=== PATIENT | female | born 1955 | race Caucasian/White ===

== ENCOUNTER → 2021-03-30 11:43 | Outpatient (CLI) | payer BC, SELFPAY ==
--- NOTE | 2021-03-30 11:46 | DI.RAD.S_ITS ---
PROCEDURE: XR ELBOW LT MIN 3V INDICATIONS: fall, elbow pain/ TECHNIQUE: 3 views of the elbow were acquired. COMPARISON: None. FINDINGS: Bones: There is a very subtle radial head fracture. No suspicious bony lesions. Soft tissues: There is an elbow joint effusion. No suspicious soft tissue calcifications. IMPRESSION: Very subtle radial head fracture with associated elbow joint effusion. Dictated by: Jamarcus Amin M.D. on 03/30/2021 at 12:37 Approved by: Jamarcus Amin M.D. on 03/30/2021 at 12:39
== END ==
PROVIDERS: Referring Provider Nurse Practitioner Family; Visit Provider Nurse Practitioner Family
DX: S52.122A Displaced fracture of head of left radius, initial encounter for closed fracture (principal); M25.422 Effusion, left elbow; W19.XXXA Unspecified fall, initial encounter
CPT/HCPCS: 73080

== ENCOUNTER 2021-06-08 13:58 | Emergency (ER) | payer BC, SELFPAY ==
[2021-06-08] VITALS (15 sets, daily range): BP systolic 138–188; BP diastolic 76–92; PULSE 66–86; RESP 10–23; TEMP 37.1; O2SAT 97–100
--- NOTE | 2021-06-08 14:06 | DI.RAD.S_ITS ---
PROCEDURE: XR CHEST 1V INDICATIONS: chest pain TECHNIQUE: One view of the chest was acquired. COMPARISON: None. FINDINGS: Surgical changes and devices: None. Lungs and pleura: Lungs are clear. No pleural effusions or pneumothorax. Mediastinum: Mediastinal contours appear normal. Heart size is normal. Bones and chest wall: No suspicious bony lesions. Overlying soft tissues appear unremarkable. IMPRESSION: No acute cardiopulmonary findings. Dictated by: Juliette Lopes M.D. on 06/08/2021 at 14:50 Approved by: Juliette Lopes M.D. on 06/08/2021 at 14:50
--- NOTE | 2021-06-08 14:50 | ED_ITS ---
HPI - Chest Pain General Chief Complaint: Chest Pain Stated Complaint: JAW AND COLLAR BONE PAIN Time Seen by Provider: 06/08/21 14:20 Source: patient and family Mode of arrival: Ambulatory History of Present Illness HPI narrative: Patient is a 66-year-old female with history of depression, chronic neck pain, nerve pain, Takotsubo cardiomyopathy, presenting today with chest discomfort. She says it started in left upper chest just below the clavicle and radiated up to her jaw. No arm pain. She does have a history of chronic nerve pain and neck pain. She says this sort of similar. She gets like pulsating in her left upper chest feels similar to her nerve pain. She was able to continue her walk a pills this morning without stopping. She denies any shortness of breath nausea or vomiting. The previously when she was diagnosed with takotsubos (in [place], [place]) she said she had severe back pain and was diagnosed by mendoza marmolejo. He does not have a food services director here. That was 3 years ago. Related Data Home Medications Medication Instructions Recorded Confirmed bupropion HCl 150 mg 24 hr tablet, 150 mg PO QAM 03/30/21 03/30/21 extended release estradiol 0.25 mg/0.25 gram (0.1 1 packet TRANSDERMAL DAILY 03/30/21 03/30/21 %) transdermal gel packet (Divigel) gabapentin 100 mg capsule 100 mg PO DAILY 03/30/21 03/30/21 progesterone .ROUTE 03/30/21 Allergies Allergy/AdvReac Type Severity Reaction Status Date / Time quinine Allergy Verified 03/30/21 11:09 Sulfa (Sulfonamide AdvReac Verified 03/30/21 11:09 Antibiotics) Review of Systems Review of Systems Narrative: GENERAL: Denies chills, fatigue, malaise, fever, sweats, travel HEENT: Denies sinus pain, ear pain, sore throat, difficulty swallowing, neck pain RESPIRATORY: Denies dyspnea, cough, wheezing, hemoptysis, sputum. CARDIOVASCULAR: See HPI GASTROINTESTINAL: Denies nausea, vomiting, abdominal pain, diarrhea, constipation, melena. : Denies dysuria, frequency, incontinence, hematuria, urinary retention, flank pain. MUSCULOSKELETAL: Denies weakness, joint pain, or bony pain SKIN: No rash, no erythema, no pruritus NEUROLOGIC: Denies weakness, dizziness, headache, numbness, change in speech, confusion PSYCHIATRIC: No concerning psychosocial issues. 12 point review of systems is negative except for those stated above and HPI Patient History Social History Smoking Status: Never smoker Smoking Status: Never smoker Exam Initial Vital Signs Initial Vital Signs: Vital Signs Temperature 98.7 F 06/08/21 14:02 Pulse Rate 81 06/08/21 14:02 Respiratory Rate 22 06/08/21 14:02 Blood Pressure 188/92 H 06/08/21 14:02 Pulse Oximetry 100 06/08/21 14:02 GENERAL: Alert well-appearing 66-year-old female in no acute distress. HEENT: Head atraumatic,EOMI, pupils reactive, face symmetric, moist mucous memb ranes CARDIOVASCULAR: Regular rate and rhythm without murmurs, rubs or gallops. RESPIRATORY: Breath sounds equal bilaterally, no wheezes rales or rhonchi. ABDOMEN: Soft, nontender. Normoactive bowel sounds all 4 quadrants. No guarding or rebound. EXTREMITIES: Normal range of motion, no clubbing or edema. Neurovascularly intact NEUROLOGICAL: Alert and oriented x4.Normal gait and speech. SKIN: Warm, dry, no laceration, no petechiae, no rashes or lesions. Course Orders Ordered: ED Orders 06/08/21 14:06 XR chest 1V Stat 06/08/21 14:15 EKG-12 Lead Stat 06/08/21 14:50 Complete Blood Count AUTO DIFF Stat Comprehensive Metabolic Panel Stat Lipase Stat Magnesium Stat Troponin & CK Cardiac Panel Stat 06/08/21 16:40 Trop I [Troponin I] Stat Discontinued Medications Aspirin (Aspirin 81 Mg Chew Tab) 324 mg PO NOW ONE Stop: 06/08/21 15:01 Last Admin: 06/08/21 15:20 Dose: 324 mg Documented by: CONRAD Nitroglycerin (Nitroglycerin 0.4 Mg Sl Tab) 0.4 mg SL NOW ONE Stop: 06/08/21 15:01 Last Admin: 06/08/21 15:21 Dose: 0.4 mg Documented by: CONRAD Vital Signs Vital signs: Vital Signs - 8 hr 06/08/21 14:02 06/08/21 14:44 06/08/21 14:45 Temperature 98.7 F Pulse Rate 81 74 76 Respiratory Rate 22 23 Blood Pressure 188/92 H 185/90 H Pulse Oximetry 100 100 06/08/21 15:00 06/08/21 15:01 06/08/21 15:20 Temperature Pulse Rate 67 68 66 Respiratory Rate 20 20 Blood Pressure 139/84 152/78 H Pulse Oximetry 100 99 100 06/08/21 15:21 06/08/21 15:30 06/08/21 15:31 Temperature Pulse Rate 74 86 81 Respiratory Rate 17 19 Blood Pressure 152/78 H 138/80 Pulse Oximetry 98 98 06/08/21 15:33 06/08/21 16:00 06/08/21 16:30 Temperature Pulse Rate 77 67 67 Respiratory Rate 18 17 10 L Blood Pressure 138/84 Pulse Oximetry 98 99 100 06/08/21 16:31 06/08/21 17:00 06/08/21 17:30 Temperature Pulse Rate 68 72 73 Respiratory Rate 21 19 23 Blood Pressure 162/76 H 152/77 H Pulse Oximetry 100 97 99 MDM - Chest Pain Lab Data Result diagrams: 06/08/21 14:50 06/08/21 14:50 Labs: Lab Results 06/08/21 06/08/21 06/08/21 Range/Units 14:50 14:50 16:40 WBC 3.6 L (4.5-11.0) X10^3/uL RBC 3.68 L (4.0-5.2) X10^6/uL Hgb 11.9 L (12.0-16.0) g/dL Hct 34.7 L (36-46) % MCV 94.2 (80-100) fL MCH 32.4 (26-34) PG MCHC 34.4 (30-36) % RDW 12.5 (11.6-14.8) % Plt Count 237 (150-400) X10^3/uL Neut % (Auto) 61.1 (50-75) % Lymph % (Auto) 28.4 (25-40) % [place] % (Auto) 8.8 (3-14) % Eos % (Auto) 0.9 L (2-4) % Baso % (Auto) 0.8 (0-2) % Neut # (Auto) 2200 (6385-2866) /uL Lymph # (Auto) 1000 L (9922-4115) /uL [place] # (Auto) 300 (0-900) /uL Eos # (Auto) 0 (0-450) /uL Baso # (Auto) 0 (0-100) /uL Sodium 128 L (137-145) mmol/L Potassium 3.7 (3.4-5.1) mmol/L Chloride 94 L (98-107) mmol/L Carbon Dioxide 27 (22-32) mmol/L BUN 11 (7-17) mg/dL Creatinine 0.61 (0.52-1.04) mg/dL Estimated GFR > 60.0 (>60) mL/min BUN/Creatinine Ratio 18.0 (6-22) Glucose 101 (80-110) mg/dL Calcium 9.2 (8.4-10.2) mg/dL Magnesium 2.2 (1.6-2.3) mg/dL Total Bilirubin 0.4 (0.2-1.3) mg/dL AST 35 (14-36) IU/L ALT 24 (<35) IU/L Alkaline Phosphatase 50 (38-126) U/L Total Creatine Kinase 116 (30-135) U/L CK-MB (CK-2) 1.52 (<2.37) ng/mL CK-MB (CK-2) Rel Index 1.3 L (1.5-5.0) % Troponin I < 0.012 < 0.012 (0.01-0.034) ng/mL Total Protein 7.1 (6.3-8.2) g/dL Albumin 4.7 (3.5-5.0) g/dL Globulin 2.4 (1.7-4.1) g/dL Albumin/Globulin Ratio 2.0 (1.0-2.8) Lipase 68 (23-300) U/L Imaging Data Chest x-ray: Radiologist's Impression: PROCEDURE:? XR CHEST 1V ? INDICATIONS:? chest pain ? TECHNIQUE:? One view of the chest was acquired.? ? COMPARISON:? None. ? FINDINGS:? ? Surgical changes and devices:? None.? ? Lungs and pleura:? Lungs are clear.? No pleural effusions or pneumothorax.? ? Mediastinum:? Mediastinal contours appear normal.? Heart size is normal.? ? Bones and chest wall:? No suspicious bony lesions.? Overlying soft tissues appear unremarkable.? ? IMPRESSION:? No acute cardiopulmonary findings. ? ? Dictated by: Juliette Lopes M.D. on 06/08/2021 at 14:50 ? ECG Data Interpretation: Normal sinus rhythm rate 69 OH interval 162 QRS [address] changes no T- wave inversion MDM Narrative Medical decision making narrative: Patient's sinus symptoms are certainly concerning for cardiac with issues although it did not stop her from walking little this morning. [id number] Dr. Kevan Dodson updated patient's symptoms and test results also agrees that patient should stay in the hospital for his stress test and further workup. Discussion with patient and in regards to both my recommendation and cardiology recommendation of being admitted for further workup of stress test. At this time patient is opting to go home. She states that she will see her PCP and get a stress test as an outpatient. The patient is clinically sober, free from distracting injury, appears to have intact insight, judgment and reason. Does not meet criteria for involuntary hospitalization. Patient has the capacity to make decisions. Discharge Plan Departure Patient Disposition: Left Against Medical Advice Clinical Impression: Atypical chest pain Instructions: DI for Atypical Chest Pain Activity Restrictions/Additional Instructions: YOU ARE LEAVING AGAINST MEDICAL ADVICE IT IS RECOMMENDED THAT HE STAY IN THE HOSPITAL AND HAVE FURTHER TESTING DONE SUCH STRESS TEST AND ECHOCARDIOGRAM *You have been diagnosed with atypical chest *What to do: Please see your primary care provider and get these tests as an outpatient. Your workup today in the emergency department was negative however it is not a complete workup, and heart attack and cardiac disease cannot be completely ruled out. *Continue to take medications as directed *Follow up with your primary care provider in 2-3 days or call [phone] *Return to ER if you should have increasing chest discomfort shortness of breath palpitations or any new, worsening or concerning symptoms Prescriptions: No Action Divigel 0.25 mg/0.25 gram (0.1 %) gel in packet 1 packet transdermal DAILY 0RF progesterone .Route 0RF Rx Instructions: apply bupropion HCl 150 mg tablet extended release 24 hr 150 mg PO QAM 0RF gabapentin 100 mg capsule 100 mg PO DAILY 0RF Referrals: Bairon Main MD [Physician] - Stand Alone Forms: Against Medical Advice
[2021-06-08 15:01] LABS: Add Manual Diff / Slide Review NO; Basophils Absolute Auto 0 /uL (0-100); Basophils Percent Auto 0.8 % (0-2); Eosinophils Absolute Auto 0 /uL (0-450); Eosinophils Percent Auto 0.9 % (2-4); Hematocrit 34.7 % (36-46); Hemoglobin 11.9 g/dL (12.0-16.0); Lymphocytes Absolute Auto 1000 /uL (1100-4500); Lymphocytes Percent Auto 28.4 % (25-40); Mean Corpuscular HGB Conc 34.4 % (30-36); Mean Corpuscular Hemoglobin 32.4 PG (26-34); Mean Corpuscular Volume 94.2 fL (80-100); Monocytes Absolute Auto 300 /uL (0-900); Monocytes Percent Auto 8.8 % (3-14); Neutrophils Absolute Auto 2200 /uL (1500-7000); Neutrophils Percent Auto 61.1 % (50-75); Platelet Count 237 X10^3/uL (150-400); Red Blood Cell Count 3.68 X10^6/uL (4.0-5.2); Red Cell Distribution Width 12.5 % (11.6-14.8); White Blood Cell Count 3.6 X10^3/uL (4.5-11.0)
[2021-06-08 15:20] LABS: Alanine Aminotransferase 24 IU/L (<35); Albumin 4.7 g/dL (3.5-5.0); Alkaline Phosphatase 50 U/L (38-126); Aspartate Aminotransferase 35 IU/L (14-36); Bilirubin Total 0.4 mg/dL (0.2-1.3); Blood Urea Nitrogen 11 mg/dL (7-17); Calcium 9.2 mg/dL (8.4-10.2); Carbon Dioxide 27 mmol/L (22-32); Chloride 94 mmol/L (98-107); Creatine Kinase 116 U/L (30-135); Estimated Glomerular Filt Rate > 60.0 mL/min (>60); Globulin 2.4 g/dL (1.7-4.1); Glucose 101 mg/dL (80-110); HEMOLYSIS < 15 (0-50); Lipase 68 U/L (23-300); Magnesium 2.2 mg/dL (1.6-2.3); Potassium 3.7 mmol/L (3.4-5.1); Sodium 128 mmol/L (137-145); Total Protein 7.1 g/dL (6.3-8.2)
[2021-06-08] MEDS: ASPIRIN 81 MG CHEW TAB 324 MG PO (15:20)
[2021-06-08] MEDS: NITROGLYCERIN 0.4 MG SL TAB SL (15:21)
[2021-06-08 15:31] LABS: Troponin I < 0.012 ng/mL (0.01-0.034)
[2021-06-08 15:36] LABS: CKMB % Relative Index 1.3 % (1.5-5.0); Creatine Kinase MB 1.52 ng/mL (<2.37)
[2021-06-08 17:14] LABS: Troponin I < 0.012 ng/mL (0.01-0.034)
== END 2021-06-08 17:59 | disposition left against medical advice (07) ==
PROVIDERS: Emergency Provider Emergency Medicine
DX: R07.89 Other chest pain (principal); I51.81 Takotsubo syndrome; Z53.29 Procedure and treatment not carried out because of patient's decision for other reasons
CPT/HCPCS: 36415; 71045; 80053; 82550; 82553; 83690; 83735; 84484; 85025; 93005; 93010; 99284